=== PATIENT | female | born 1980 | race Hispanic/Latino ===

== ENCOUNTER 2020-08-10 07:58 | Outpatient (CLI) | payer OTHER ==
--- NOTE | 2020-08-10 09:43 | ULT ---
ULTRASOUND PELVIC TRANSVAGINAL WITH DOPPLER: HISTORY: Pelvic pain. Fibroids. COMPARISON: Ultrasound from [address] 07/12/2020. FINDINGS: There is marked heterogeneity and thickening of the endometrial cavity with some cystic structures wi thin it. The endometrium measures 2.3 cm. In the left ovary, there is a 6.5 cm cyst. Overall, the left ovary has a volume of 383 mL including the cystic structure. Flow is seen to the periphery of the left ovary. The right ovary is not well seen. The uterine fundus is a 4.6 cm cyst which is intramural. IMPRESSION: 1. Heterogeneous endometrium with small cystic foci and marked thickening. Endometrial biopsy recom mended. 2. Fundal fibroid which is intramural measuring up to 4.6 cm. 3. Large left ovarian cystic structure measuring 6.5 cm in size with smaller adjacent cysts. This i s incompletely evaluated with ultrasound given its large size and measured over [address] exam[address] ation. Pelvic MRI may be beneficial. Low-grade underlying malignant process is a definite possibili ty. POS: [facility]
== END 2020-08-10 07:59 | disposition home or self-care (01) ==
LOC: BICULT 07:58
PROVIDERS: ATTEND Nurse Practitioner Family
DX: D25.1 Intramural leiomyoma of uterus (principal); R93.89 Abnormal findings on diagnostic imaging of other specified body structures; N83.202 Unspecified ovarian cyst, left side
CPT/HCPCS: 76856

== ENCOUNTER 2020-12-09 11:52 | Outpatient (CLI) | payer OTHER ==
[2020-12-09] MEDS ORDERED: Magnevist 469MG/ML 20 ML VIAL ONE (14:07)
== END 2020-12-09 11:53 | disposition home or self-care (01) ==
LOC: MRI 11:52
PROVIDERS: ATTEND Family Medicine
DX: G44.89 Other headache syndrome (principal)
CPT/HCPCS: 70553; A9579

== ENCOUNTER 2020-12-16 08:37 | Outpatient (CLI) | payer OTHER ==
[2020-12-16] MEDS ORDERED: Iopamidol 370 76% 100 ML VIAL ONE (11:19)
== END 2020-12-16 08:38 | disposition home or self-care (01) ==
LOC: CT 08:37
PROVIDERS: ATTEND Obstetrics & Gynecology Gynecologic Oncology
DX: C54.1 Malignant neoplasm of endometrium (principal); K76.0 Fatty (change of) liver, not elsewhere classified; Z90.722 Acquired absence of ovaries, bilateral; Z90.710 Acquired absence of both cervix and uterus
CPT/HCPCS: 71260; 74177; Q9967

== ENCOUNTER 2022-01-11 15:50 | Outpatient (CLI) | payer OTHER | END 2022-01-11 15:51 | disposition home or self-care (01) | LOC: BICRAD 15:50 | PROVIDERS: ATTEND Nurse Practitioner Family | DX: C54.1 Malignant neoplasm of endometrium (principal) | CPT/HCPCS: 71046 ==

== ENCOUNTER 2022-06-20 09:16 | Outpatient (CLI) | payer OTHER | END 2022-06-20 09:17 | disposition home or self-care (01) | LOC: BICRAD 09:16 | PROVIDERS: ATTEND Nurse Practitioner Family | DX: C54.1 Malignant neoplasm of endometrium (principal) | CPT/HCPCS: 71046 ==

== ENCOUNTER 2022-07-14 08:17 | Outpatient (CLI) | payer OTHER ==
[2022-07-14] MEDS ORDERED: Iopamidol 370 76% 100 ML VIAL ONE (10:08)
== END 2022-07-14 08:18 | disposition home or self-care (01) ==
LOC: CT 08:17
PROVIDERS: ATTEND Obstetrics & Gynecology Gynecologic Oncology
DX: C54.1 Malignant neoplasm of endometrium (principal)
CPT/HCPCS: 71260; 74177; Q9967

== ENCOUNTER 2023-01-09 09:03 | Outpatient (CLI) | payer OTHER | END 2023-01-09 09:04 | disposition home or self-care (01) | LOC: BICRAD 09:03 | PROVIDERS: ATTEND Obstetrics & Gynecology Gynecologic Oncology | DX: C54.1 Malignant neoplasm of endometrium (principal) | CPT/HCPCS: 71046 ==